=== PATIENT | male | born 1960 | race Caucasian/White ===

== ENCOUNTER 2016-07-27 21:10 | Inpatient (IN) | payer BC ==
[~2016-07-27] VITALS: Ht 188 cm; Wt 87.9 kg
[~2016-07-27 21:10] MED LIST: CEFDINIR300 MG PO; MOTRIN800 MG PO; TEGRETOL100 MG PO
[2016-07-27 21:58] LABS: HEMATOCRIT 41.6 % (38.0-50.0); MCHC 33.4 G/DL (30.0-36.0); MCV 95.9 FL (86-99); MEAN PLAT.VOLUME 9.5 uM^3 (9.0-12.4); PLATELET COUNT 290 K/uL (156-360); RBC DIS.WIDTH-CV 12.6 % (11.8-14.6); RBC DIS.WIDTH-SD 42.7 % (39-53); RED BLOOD COUNT 4.34 M/uL (4.00-5.50); WHITE BLOOD COUNT 4.5 K/uL (4.1-10.2)
[2016-07-27 22:08] LABS: CHLORIDE 106 mEq/L (99-109); POTASSIUM 4.3 mEq/L (3.7-5.4); SODIUM 140 mEq/L (136-147)
[2016-07-27 22:10] LABS: GLUCOSE 110 mg/dL (70-99)
[2016-07-27 22:11] LABS: ANION GAP 11 MEQ/L (2-14)
[2016-07-27 22:14] LABS: GFR ESTIMATE (CALCULATED) > 59 mL/min/; UREA NITROGEN (BUN) 13 mg/dL (9-23)
[2016-07-28] VITALS (12 sets, daily range): BP systolic 102–135; BP diastolic 48–82
[2016-07-28] MEDS ORDERED: ADVIL200 MG PO (00:22)
[2016-07-28] MEDS ORDERED: EPITOL200 MG PO (00:22)
[2016-07-28 02:31] LABS: HDL CHOLESTEROL 55 MG/DL (Desirable>=40); LDL CHOLESTEROL 175 mg/dL (Desirable<100); NON-HDL CHOLESTEROL 227 mg/dL (Desirable<160); SERUM ETHYL ALCOHOL < 10 mg/dL; TOTAL CHOLESTEROL 282 mg/dL (Desirable<200); TRIGLYCERIDES 258 MG/DL (Normal: <150)
[2016-07-28 04:03] LABS: METH RESISTANT S AUREUS PCR NEGATIVE (NEGATIVE)
[2016-07-28 04:04] LABS: PROBE CHECK PASS; SPECIMEN PROCESSING CONTROL PASS
[2016-07-28 07:38] LABS: Estimated Average Glucose 114 mg/dL (70-123); HEMOGLOBIN A1c (GLYCOHEMOGLOB) 5.6 % HGB (Below 5.7)
[2016-07-28 17:26] LABS: ADD MIUA? YES; BILIRUBIN NEGATIVE; BLOOD NEGATIVE; COLOR YELLOW ((YELLOW)); GLUCOSE (STRIP) NEGATIVE; KETONES NEGATIVE; LEUKOCYTES TRACE; NITRITE NEGATIVE; PH, URINE 6.5 (5-8); PROTEIN (STRIP) NEGATIVE; SPECIFIC GRAVITY 1.024 (1.000-1.030); UROBILINOGEN 0.2 MG/DL (0.2-1.0)
[2016-07-28 17:29] LABS: BACTERIA NONE SEEN; CASTS NONE SEEN /LPF; CRYSTALS NONE SEEN; EPITHELIAL CELLS RARE; MUCUS NONE SEEN; PATHOLOGICAL CAST NONE SEEN; RED BLOOD CELLS 0-5 /HPF (0-5); SMALL ROUND CELL NONE SEEN; UCUL ADDED? NO; YEAST-LIKE CELL NONE SEEN
[2016-07-28 19:17] LABS: AMPHETAMINES QUANT VALUE 0 NG/ML; BARBITUATES QUANT VALUE 0 NG/ML; BENZODIAZEPINES QUANT VALUE 0 NG/ML; BENZODIAZEPINES, URINE SCREEN Negative (200 ng/mL); MARIJUANA QUANT VALUE 0 NG/ML; OPIATES QUANTITATIVE VALUE 0 NG/ML; PHENCYCLIDINE QUANT VALUE 0 NG/ML
[2016-07-29 04:32] VITALS: BP 133/75
[2016-07-29 05:54] LABS: EOSINOPHIL (%) 4.5 % (0-5); EOSINOPHIL COUNT 0.2 K/uL (0-0.3); HEMATOCRIT 39.7 % (38.0-50.0); LYMPHOCYTE COUNT 1.2 K/uL (1.0-2.8); MCH 32.5 PG (29.0-34.0); MCHC 33.5 G/DL (30.0-36.0); MCV 97.1 FL (86-99); MEAN PLAT.VOLUME 10.1 uM^3 (9.0-12.4); MONOCYTE (%) 11.4 % (3-12); MONOCYTE COUNT 0.5 K/uL (0-0.8); NEUTROPHIL (%) 54.8 % (45-76); NEUTROPHIL COUNT 2.2 K/uL (1.8-6.4); PLATELET COUNT 245 K/uL (156-360); RBC DIS.WIDTH-CV 12.6 % (11.8-14.6); RBC DIS.WIDTH-SD 44.5 % (39-53); RED BLOOD COUNT 4.09 M/uL (4.00-5.50)
[2016-07-29 06:46] LABS: ALKALINE PHOSPHATASE 58 IU/L (3-129); ANION GAP 6 MEQ/L (2-14); CHLORIDE 104 MEQ/L (99-109); GFR ESTIMATE (CALCULATED) > 59 mL/min/; GLUCOSE 106 mg/dL (70-99); POTASSIUM 4.1 MEQ/L (3.7-5.4); SAMPLE HEMOLYSIS CHECK 0; SAMPLE ICTERIC CHECK 0; SAMPLE LIPEMIA CHECK 0; SODIUM 136 MEQ/L (136-147); TOTAL BILIRUBIN 0.4 MG/DL (0.0-1.0); UREA NITROGEN (BUN) 16 mg/dL (9-23)
[2016-07-29 08:01] VITALS: BP 129/77
[2016-07-29 12:17] VITALS: BP 138/79
[2016-07-29] MEDS ORDERED: ASPIR-LOW81 MG PO (13:16)
[2016-07-29] MEDS ORDERED: PRAVASTATIN SOD40 MG PO (13:16)
== END 2016-07-29 15:26 | disposition home or self-care (01) | DRG 64 ==
LOC: EME 21:10 → EDOF 07-28 00:48 → 5SOUTH 07-28 00:48 → 4WEST 07-28 02:46 → 5SOUTH 07-28 17:28
PROVIDERS: Hospitalist; Internal Medicine; Physician Assistant
DX: I63.311 Cerebral infarction due to thrombosis of right middle cerebral artery (principal); I63.231 Cerebral infarction due to unspecified occlusion or stenosis of right carotid arteries; R41.82 Altered mental status, unspecified; R29.810 Facial weakness; I51.7 Cardiomegaly; E78.5 Hyperlipidemia, unspecified; G40.909 Epilepsy, unspecified, not intractable, without status epilepticus; S06.9X9S Unspecified intracranial injury with loss of consciousness of unspecified duration, sequela
CPT/HCPCS: 70450; 70544; 70549; 70551; 71020; 80048; 80053; 80061; 80156; 81003; 83036; 85025; 85027; 87641; 92523 GN; 93005; 93306; 99281; 99285; G0480; J1650

== ENCOUNTER 2016-10-08 19:36 | Inpatient (IN) | payer BC ==
[~2016-10-08] VITALS: Ht 167.6 cm; Wt 85.2 kg
[~2016-10-08 19:36] MED LIST changes: +ADVIL200 MG PO; +ASPIR-LOW81 MG PO; +EPITOL200 MG PO; +PRAVASTATIN SOD40 MG PO
[2016-10-08 20:06] LABS: HEMATOCRIT 38.5 % (38.0-50.0); MCH 31.3 PG (29.0-34.0); MCHC 32.5 G/DL (30.0-36.0); MCV 96.3 FL (86-99); PLATELET COUNT 258 K/uL (156-360); RBC DIS.WIDTH-CV 12.1 % (11.8-14.6); RBC DIS.WIDTH-SD 42.7 % (39-53); WHITE BLOOD COUNT 4.9 K/uL (4.1-10.2)
[2016-10-08 20:32] LABS: CHLORIDE 106 mEq/L (99-109); POTASSIUM 4.3 mEq/L (3.7-5.4); SODIUM 139 mEq/L (136-147)
[2016-10-08 20:34] LABS: GLUCOSE 98 mg/dL (70-99)
[2016-10-08 20:35] LABS: ANION GAP 8 MEQ/L (2-14)
[2016-10-08 20:37] LABS: GFR ESTIMATE (CALCULATED) > 59 mL/min/
[2016-10-08 20:45] LABS: UREA NITROGEN (BUN) 19 mg/dL (9-23)
[2016-10-08 20:58] LABS: TROP-I INTERPRETATION NEGATIVE; TROPONIN-I < 0.01 ng/mL (0.0-0.30)
[2016-10-08] MEDS ORDERED: TEGRETOL200 MG PO (22:50)
[2016-10-08] MEDS ORDERED: ATORVASTATIN CA20 MG PO (22:51)
[2016-10-08] MEDS ORDERED: ADVIL200 M3 PO (22:51)
[2016-10-08] MEDS ORDERED: ST. JOSEPH ASPI81 MG PO (22:51)
[2016-10-09 04:00] VITALS: BP 135/87
[2016-10-09 07:45] LABS: Estimated Average Glucose 114 mg/dL (70-123); HEMOGLOBIN A1c (GLYCOHEMOGLOB) 5.6 % HGB (Below 5.7)
[2016-10-09 07:54] VITALS: BP 132/76
[2016-10-09 07:58] LABS: HDL CHOLESTEROL 50 MG/DL (Desirable>=40); LDL CHOLESTEROL 104 mg/dL (Desirable<100); NON-HDL CHOLESTEROL 122 mg/dL (Desirable<160); TOTAL CHOLESTEROL 172 mg/dL (Desirable<200); TRIGLYCERIDES 90 MG/DL (Normal: <150)
[2016-10-09 11:03] VITALS: BP 121/73
[2016-10-09 11:32] VITALS: BP 121/73
== END 2016-10-09 14:43 | disposition home or self-care (01) | DRG 93 ==
LOC: EME 19:36 → EDOF 23:15 → 5SOUTH 10-09 00:30
PROVIDERS: Physician Assistant Medical
DX: R20.2 Paresthesia of skin (principal); I65.23 Occlusion and stenosis of bilateral carotid arteries; I66.01 Occlusion and stenosis of right middle cerebral artery; G40.909 Epilepsy, unspecified, not intractable, without status epilepticus; S06.9X9S Unspecified intracranial injury with loss of consciousness of unspecified duration, sequela; E78.5 Hyperlipidemia, unspecified; Z79.82 Long term (current) use of aspirin; Z86.73 Personal history of transient ischemic attack (TIA), and cerebral infarction without residual deficits
CPT/HCPCS: 70450; 70551; 71020; 80048; 80061; 83036; 83880; 84484; 85027; 93005; 99281; 99285; J1650; J1885

== ENCOUNTER 2017-12-05 19:32 | Emergency (ER) | payer BC ==
[~2017-12-05] VITALS: Ht 167.6 cm; Wt 86.6 kg
[~2017-12-05 19:32] MED LIST changes: +ADVIL200 M3 PO; +ATORVASTATIN CA20 MG PO; +ST. JOSEPH ASPI81 MG PO; +TEGRETOL200 MG PO
[2017-12-05 20:58] LABS: HEMATOCRIT 37.2 % (38.0-50.0); HEMOGLOBIN 13.1 G/DL (12.5-16.6); MCH 33.5 PG (29.0-34.0); MCHC 35.2 G/DL (30.0-36.0); MCV 95.1 FL (86-99); PLATELET COUNT 253 K/uL (156-360); RBC DIS.WIDTH-CV 11.9 % (11.8-14.6); RBC DIS.WIDTH-SD 41.6 % (39-53); RED BLOOD COUNT 3.91 M/uL (4.00-5.50); WHITE BLOOD COUNT 4.7 K/uL (4.1-10.2)
[2017-12-05 21:07] LABS: ALBUMIN 4.2 g/dL (3.2-4.8)
[2017-12-05 21:08] LABS: CHLORIDE 104 mEq/L (99-109); POTASSIUM 4.1 mEq/L (3.7-5.4); SODIUM 137 mEq/L (136-147)
[2017-12-05 21:10] LABS: GLUCOSE 101 mg/dL (70-99); TOTAL PROTEIN 6.6 g/dL (6.4-8.3)
[2017-12-05 21:12] LABS: TOTAL BILIRUBIN 0.1 mg/dL (0.0-1.0)
[2017-12-05 21:13] LABS: ALKALINE PHOSPHATASE 59 IU/L (3-129)
[2017-12-05 21:14] LABS: CREATININE 0.9 mg/dL (0.6-1.3); GFR ESTIMATE (CALCULATED) > 59 mL/min/ (58.99-99999)
[2017-12-05 21:15] LABS: AST (GOT) 23 IU/L (2-34); UREA NITROGEN (BUN) 17 mg/dL (9-23)
[2017-12-05 21:16] LABS: ALT (GPT) 20 IU/L (3-49)
[2017-12-05 21:17] LABS: CREATINE KINASE 101 IU/L (1-294)
[2017-12-05 21:26] LABS: APPEARANCE CLEAR ((CLEAR)); BILIRUBIN NEGATIVE; BLOOD NEGATIVE; COLOR YELLOW ((YELLOW)); GLUCOSE (STRIP) NEGATIVE; KETONES NEGATIVE; LEUKOCYTES NEGATIVE; NITRITE NEGATIVE; PROTEIN (STRIP) NEGATIVE; UCUL ADDED? NO; UROBILINOGEN 0.2 MG/DL (0.2-1.0)
[2017-12-05 22:00] LABS: THYROTROPIN (TSH) 3.4 MIU/L (0.4-5.5)
[2017-12-06] MEDS ORDERED: ATIVAN0.5 MG PO (00:25)
[2017-12-06 00:32] VITALS: BP 144/83
[2017-12-06 09:23] LABS: LYME DISEASE SEROLOGY SCREEN NEGATIVE (NEGATIVE)
== END 2017-12-06 01:08 | disposition home or self-care (01) ==
LOC: EME 19:32 → EXP 19:32
PROVIDERS: Physician Assistant
DX: F41.9 Anxiety disorder, unspecified (principal); R53.83 Other fatigue; R51 Headache; Z86.73 Personal history of transient ischemic attack (TIA), and cerebral infarction without residual deficits; Z86.69 Personal history of other diseases of the nervous system and sense organs
CPT/HCPCS: 70450; 80053; 81003; 82550; 84443; 85027; 86618; 93005; 99281; 99283